=== PATIENT | male | born 1955 | race Caucasian/White ===

== ENCOUNTER 2022-12-08 09:13 | Inpatient (IN) | payer MEDICARE ==
[2022-12-08] MEDS ORDERED: Iopamidol 370 76% 100 ML VIAL ONE (09:25)
[2022-12-08 09:57] LABS: Mean Corpuscular HGB CONC 31.1 g/dL (32.0-36.0); Mean Corpuscular Hemoglobin 27.8 pg (27.0-33.0); Mean Corpuscular Volume 89.2 fl (81.2-95.1); Mean Platelet Volume 9.3 fl (7.4-10.4); Platelet Count 385 10x3/uL (150-450); RBC Distribution Width 16.4 % (11.5-14.5); Red Blood Cell (RBC) Count 3.24 10x6/uL (4.32-5.72); White Blood Cell (WBC) Count 33.1 10x3/uL (3.5-10.5)
[2022-12-08 09:58] LABS: MDiff Complete? YES
[2022-12-08 10:02] LABS: Actual Bicarbonate (HCO3v) 22.1 mEq/L (22-28); Calcium, Ionized (venous) 1.01 mmol/L (1.16-1.32); Chloride (VBG) 97 mmol/L (98-106); Hematocrit-VBG 28 % (42.0-52.0); Hemoglobin (Hb) 9.6 g/dL (12.6-17.4); Potassium (VBG) 3.17 mmol/L (3.70-5.30); Puncture Site Other Site; RapidComm Collect By CBN; Sodium 134.7 mmol/L (133-146); pH (venous) 7.421 (7.32-7.43)
[2022-12-08 10:09] LABS: ALT (SGPT) 12 U/L (8-55); AST (SGOT) 12 U/L (5-34); Albumin 3.2 g/dL (3.4-4.8); Alkaline Phosphatase 97 U/L (40-110); Anion Gap 18 mmol/L (10-20); BUN (Urea Nitrogen) 60 mg/dL (8.4-25.7); Bilirubin, Total 0.6 mg/dL (0.2-1.2); Calc. Creatinine Clearance 0 mL/min (70-130); Calcium 7.6 mg/dL (7.8-10.44); Carbon Dioxide 23 mmol/L (23-31); Chloride 96 mmol/L (98-107); Estimated GFR 8; Globulin 2.9 g/dL (2.4-3.5); Glucose 134 mg/dL (80-115); Potassium 3.3 mmol/L (3.5-5.1); Protein, Total 6.1 g/dL (5.8-8.1); Sodium 134 mmol/L (136-145)
[2022-12-08 10:19] LABS: Band 2 % (5-11); Lymphocytes 5 % (21-51); Monocytes 2 % (0-10); Neutrophil 91 % (42-75)
[2022-12-08 10:20] LABS: Hypochromia SLIGHT = 6-15 cells (100X) (0-5/hpf); Ovalocytes SLIGHT = 2-5 cells (100X) (0-1/hpf); Platelet Adequacy Comment Appears Adequate
[2022-12-08 10:28] LABS: CKMB 1.2 ng/mL (0-6.6)
[2022-12-08 10:30] LABS: SARS-CoV-2 NAA Rapid Test Not Detected (NotDetected)
[2022-12-08] MEDS ORDERED: cefTRIAXone (ROCEPHIN) 1 GM VIAL ONE (11:17)
[2022-12-08] MEDS ORDERED: Glucagon 1 MG/ML KIT IM PRN (13:54)
[2022-12-08] MEDS ORDERED: Dextrose 50% Abboject 50 ML SYRINGE SLOW IVP PRN (13:54)
[2022-12-08] MEDS ORDERED: Dextrose 5% in Water 1,000 ML IV PRN (13:54)
[2022-12-08 18:03] VITALS: BMI 22.6
[2022-12-08] MEDS: Heparin 5,000 UNITS/ML VIAL SC SCH ×2 (18:50→20:43)
[2022-12-08] MEDS ORDERED: LevoFLOXacin 750 mg/D5W 750 MG in Premix Bag 1 BAG IVPB SCH ×2 (19:30→19:45)
[2022-12-09 05:42] LABS: Hemoglobin 8.8 g/dL (13.5-17.5); Mean Corpuscular HGB CONC 31.8 g/dL (32.0-36.0); Mean Corpuscular Hemoglobin 27.8 pg (27.0-33.0); Mean Corpuscular Volume 87.4 fl (81.2-95.1); Platelet Count 371 10x3/uL (150-450); RBC Distribution Width 16.4 % (11.5-14.5); Red Blood Cell (RBC) Count 3.17 10x6/uL (4.32-5.72); White Blood Cell (WBC) Count 28.9 10x3/uL (3.5-10.5)
[2022-12-09 05:43] LABS: MDiff Complete? YES
[2022-12-09 06:00] LABS: Anion Gap 21 mmol/L (10-20); BUN (Urea Nitrogen) 74 mg/dL (8.4-25.7); Calc. Creatinine Clearance 8 mL/min (70-130); Calcium 7.8 mg/dL (7.8-10.44); Carbon Dioxide 22 mmol/L (23-31); Chloride 95 mmol/L (98-107); Estimated GFR 6; Glucose 85 mg/dL (80-115); Potassium 3.2 mmol/L (3.5-5.1); Sodium 135 mmol/L (136-145)
[2022-12-09 06:12] LABS: Band 2 % (5-11); Lymphocytes 4 % (21-51); Monocytes 3 % (0-10); Neutrophil 91 % (42-75)
[2022-12-09 06:13] LABS: Anisocytosis SLIGHT = 6-15 cells (100X) (0-5/hpf); Platelet Adequacy Comment Appears Adequate
[2022-12-09] MEDS: Heparin 10,000 UNITS/ 10 ML VIAL SLOW IVP PRN (11:22)
[2022-12-09] MEDS: Heparin 5,000 UNITS/ML VIAL SC SCH ×3 (11:24→22:08)
[2022-12-09 11:51] LABS: HBSAg Index 0.67 S/CO (0-0.99); Hep B Surf Ag Non-Reactive S/CO (NonReactive)
[2022-12-09] MEDS: EPOETIN ALFA-EPBX (ESRD) 10,000 UNITS/ML VIAL IVP PRN (13:35)
[2022-12-09 15:30] LABS: Cardiac Risk 3.4 (Less than 4.5)
[2022-12-09] MEDS ORDERED: Heparin 10,000 UNITS/ 10 ML VIAL ONE (17:02)
[2022-12-09 17:10] LABS: HBSAB Concentration 39.57 mIU/mL; Hep B Surf AB Reactive (NonReactive)
[2022-12-09] MEDS: hydrALAZINE 25 MG TAB PO SCH ×2 (17:13→22:07)
[2022-12-09 20:18] LABS: Hemoglobin A1c 5.7 % (4.0-6.0)
[2022-12-09] MEDS: Gabapentin 300 MG CAP PO SCH (22:08)
[2022-12-09] MEDS: Atorvastatin Calcium 40 MG TAB PO SCH (22:08)
[2022-12-09] MEDS: Carvedilol 3.125 MG TAB PO SCH (22:09)
[2022-12-10] MEDS: Levothyroxine Sodium 50 MCG TAB PO SCH (06:27)
[2022-12-10 08:36] LABS: Hemoglobin 9.5 g/dL (13.5-17.5); Mean Corpuscular HGB CONC 31.7 g/dL (32.0-36.0); Mean Corpuscular Hemoglobin 28.1 pg (27.0-33.0); Mean Corpuscular Volume 88.8 fl (81.2-95.1); Mean Platelet Volume 9.4 fl (7.4-10.4); Platelet Count 411 10x3/uL (150-450); RBC Distribution Width 16.5 % (11.5-14.5); Red Blood Cell (RBC) Count 3.38 10x6/uL (4.32-5.72); White Blood Cell (WBC) Count 23.9 10x3/uL (3.5-10.5)
[2022-12-10 08:47] LABS: Anion Gap 14 mmol/L (10-20); BUN (Urea Nitrogen) 35 mg/dL (8.4-25.7); Calc. Creatinine Clearance 13 mL/min (70-130); Calcium 8.3 mg/dL (7.8-10.44); Carbon Dioxide 29 mmol/L (23-31); Chloride 99 mmol/L (98-107); Estimated GFR 12; Glucose 140 mg/dL (80-115); Potassium 3.5 mmol/L (3.5-5.1); Sodium 138 mmol/L (136-145)
[2022-12-10 08:56] LABS: MDiff Complete? YES
[2022-12-10] MEDS: hydrALAZINE 25 MG TAB PO SCH ×3 (09:21→20:44)
[2022-12-10] MEDS: Lisinopril 10 MG TAB PO SCH (09:21)
[2022-12-10] MEDS: Escitalopram Oxalate 10 mg Tablet PO SCH (09:22)
[2022-12-10] MEDS: Carvedilol 3.125 MG TAB PO SCH ×2 (09:22→20:44)
[2022-12-10] MEDS: Heparin 5,000 UNITS/ML VIAL SC SCH ×3 (09:22→20:47)
[2022-12-10] MEDS: Aspirin 325 MG TAB PO SCH (09:22)
[2022-12-10] MEDS: Clopidogrel Bisulfate 75 MG TAB PO SCH (09:22)
[2022-12-10 10:08] LABS: Band 1 % (5-11); Eosinophils 1 % (0-10); Lymphocytes 7 % (21-51); Monocytes 4 % (0-10); Neutrophil 87 % (42-75)
[2022-12-10 10:09] LABS: Platelet Adequacy Comment Appears Adequate; RBC Morph Comment Within Normal Limits
[2022-12-10] MEDS ORDERED: Glucagon 1 MG/ML KIT IM PRN (13:19)
[2022-12-10] MEDS ORDERED: HumaLOG 300 UNITS/3 ML VIAL SC PRN (13:19)
[2022-12-10] MEDS ORDERED: Dextrose 50% Abboject 50 ML SYRINGE SLOW IVP PRN (13:19)
[2022-12-10] MEDS ORDERED: Dextrose 5% in Water 1,000 ML IV PRN (13:19)
[2022-12-10] MEDS: HumaLOG 300 UNITS/3 ML VIAL SC PRN (17:39)
[2022-12-10] MEDS: LevoFLOXacin 500 mg/D5W 500 MG in Premix Bag 1 BAG IVPB SCH (20:43)
[2022-12-10] MEDS: Atorvastatin Calcium 40 MG TAB PO SCH (20:44)
[2022-12-10] MEDS: Gabapentin 300 MG CAP PO SCH (20:47)
[2022-12-11 04:08] LABS: #Basophils 0.1 10x3/uL (0.0-0.2); #Eosinphils 0.1 10x3/uL (0.0-0.5); #Monocytes 0.9 10x3/uL (0.0-1.1); #Neutrophils 16.8 10x3/uL (1.5-8.4); %Basophils 0.3 % (0.0-2.0); %Eosinophils 0.7 % (0.0-6.0); %Lymphocytes 4.8 % (18.0-47.0); %Neutrophils 88.6 % (40.0-75.0); Mean Corpuscular HGB CONC 31.1 g/dL (32.0-36.0); Mean Corpuscular Hemoglobin 27.7 pg (27.0-33.0); Mean Corpuscular Volume 88.9 fl (81.2-95.1); Mean Platelet Volume 9.5 fl (7.4-10.4); Platelet Count 414 10x3/uL (150-450); RBC Distribution Width 16.4 % (11.5-14.5); Red Blood Cell (RBC) Count 3.25 10x6/uL (4.32-5.72); White Blood Cell (WBC) Count 18.9 10x3/uL (3.5-10.5)
[2022-12-11 04:20] LABS: Anion Gap 15 mmol/L (10-20); BUN (Urea Nitrogen) 51 mg/dL (8.4-25.7); Calc. Creatinine Clearance 10 mL/min (70-130); Carbon Dioxide 26 mmol/L (23-31); Chloride 100 mmol/L (98-107); Estimated GFR 8; Glucose 110 mg/dL (80-115); Potassium 3.9 mmol/L (3.5-5.1); Sodium 137 mmol/L (136-145)
[2022-12-11] MEDS: Levothyroxine Sodium 50 MCG TAB PO SCH (05:41)
[2022-12-11] MEDS: Clopidogrel Bisulfate 75 MG TAB PO SCH (09:18)
[2022-12-11] MEDS: Aspirin 325 MG TAB PO SCH (09:18)
[2022-12-11] MEDS: Carvedilol 3.125 MG TAB PO SCH ×2 (09:18→21:03)
[2022-12-11] MEDS: Heparin 5,000 UNITS/ML VIAL SC SCH ×3 (09:18→21:03)
[2022-12-11] MEDS: Escitalopram Oxalate 10 mg Tablet PO SCH (09:18)
[2022-12-11] MEDS: Lisinopril 10 MG TAB PO SCH (09:19)
[2022-12-11] MEDS: hydrALAZINE 25 MG TAB PO SCH ×3 (09:19→21:02)
[2022-12-11] MEDS: Heparin 10,000 UNITS/ 10 ML VIAL SLOW IVP PRN (09:57)
[2022-12-11] MEDS: EPOETIN ALFA-EPBX (ESRD) 10,000 UNITS/ML VIAL IVP PRN (12:56)
[2022-12-11] MEDS: Atorvastatin Calcium 40 MG TAB PO SCH (21:03)
[2022-12-11] MEDS: Gabapentin 300 MG CAP PO SCH (21:03)
[2022-12-12 03:57] LABS: #Basophils 0.1 10x3/uL (0.0-0.2); #Eosinphils 0.1 10x3/uL (0.0-0.5); #Monocytes 0.8 10x3/uL (0.0-1.1); #Neutrophils 15.5 10x3/uL (1.5-8.4); %Basophils 0.3 % (0.0-2.0); %Eosinophils 0.3 % (0.0-6.0); %Lymphocytes 4.5 % (18.0-47.0); %Monocytes 4.8 % (0.0-10.0); %Neutrophils 89.4 % (40.0-75.0); Hemoglobin 9.6 g/dL (13.5-17.5); Mean Corpuscular HGB CONC 30.1 g/dL (32.0-36.0); Mean Corpuscular Hemoglobin 27.4 pg (27.0-33.0); Mean Corpuscular Volume 90.9 fl (81.2-95.1); Mean Platelet Volume 9.2 fl (7.4-10.4); Platelet Count 437 10x3/uL (150-450); RBC Distribution Width 16.6 % (11.5-14.5); Red Blood Cell (RBC) Count 3.51 10x6/uL (4.32-5.72); White Blood Cell (WBC) Count 17.3 10x3/uL (3.5-10.5)
[2022-12-12 04:09] LABS: Anion Gap 11 mmol/L (10-20); BUN (Urea Nitrogen) 29 mg/dL (8.4-25.7); Calc. Creatinine Clearance 17 mL/min (70-130); Calcium 8.4 mg/dL (7.8-10.44); Carbon Dioxide 31 mmol/L (23-31); Chloride 100 mmol/L (98-107); Estimated GFR 16; Glucose 163 mg/dL (80-115); Potassium 4.3 mmol/L (3.5-5.1); Sodium 138 mmol/L (136-145)
[2022-12-12] MEDS: Levothyroxine Sodium 50 MCG TAB PO SCH (06:19)
[2022-12-12] MEDS: Heparin 5,000 UNITS/ML VIAL SC SCH ×3 (10:11→21:48)
[2022-12-12] MEDS: Aspirin 325 MG TAB PO SCH (10:12)
[2022-12-12] MEDS: Clopidogrel Bisulfate 75 MG TAB PO SCH (10:12)
[2022-12-12] MEDS: Escitalopram Oxalate 10 mg Tablet PO SCH (10:14)
[2022-12-12] MEDS: hydrALAZINE 25 MG TAB PO SCH ×3 (10:43→21:40)
[2022-12-12] MEDS: Lisinopril 10 MG TAB PO SCH (10:43)
[2022-12-12] MEDS: Carvedilol 3.125 MG TAB PO SCH ×2 (10:43→21:40)
[2022-12-12] MEDS: HumaLOG 300 UNITS/3 ML VIAL SC PRN (12:48)
[2022-12-12] MEDS: Atorvastatin Calcium 40 MG TAB PO SCH (21:39)
[2022-12-12] MEDS: Gabapentin 300 MG CAP PO SCH (21:40)
[2022-12-12] MEDS: LevoFLOXacin 500 mg/D5W 500 MG in Premix Bag 1 BAG IVPB SCH (21:41)
[2022-12-13] MEDS: Levothyroxine Sodium 50 MCG TAB PO SCH (05:28)
[2022-12-13 05:45] LABS: #Basophils 0.1 10x3/uL (0.0-0.2); #Eosinphils 0.2 10x3/uL (0.0-0.5); #Monocytes 0.9 10x3/uL (0.0-1.1); %Basophils 0.4 % (0.0-2.0); %Eosinophils 1.1 % (0.0-6.0); %Lymphocytes 5.3 % (18.0-47.0); %Neutrophils 87.5 % (40.0-75.0); Hemoglobin 9.9 g/dL (13.5-17.5); Mean Corpuscular HGB CONC 30.9 g/dL (32.0-36.0); Mean Corpuscular Volume 90.4 fl (81.2-95.1); Mean Platelet Volume 9.2 fl (7.4-10.4); Platelet Count 459 10x3/uL (150-450); RBC Distribution Width 16.8 % (11.5-14.5); Red Blood Cell (RBC) Count 3.54 10x6/uL (4.32-5.72); White Blood Cell (WBC) Count 18.3 10x3/uL (3.5-10.5)
[2022-12-13 06:02] LABS: Anion Gap 19 mmol/L (10-20); BUN (Urea Nitrogen) 52 mg/dL (8.4-25.7); Calc. Creatinine Clearance 12 mL/min (70-130); Calcium 8.4 mg/dL (7.8-10.44); Carbon Dioxide 26 mmol/L (23-31); Chloride 98 mmol/L (98-107); Estimated GFR 10; Glucose 116 mg/dL (80-115); Sodium 138 mmol/L (136-145)
[2022-12-13] MEDS: Clopidogrel Bisulfate 75 MG TAB PO SCH (09:17)
[2022-12-13] MEDS: Lisinopril 10 MG TAB PO SCH (09:17)
[2022-12-13] MEDS: Carvedilol 3.125 MG TAB PO SCH ×2 (09:17→20:56)
[2022-12-13] MEDS: Aspirin 325 MG TAB PO SCH (09:17)
[2022-12-13] MEDS: Heparin 5,000 UNITS/ML VIAL SC SCH ×3 (09:17→20:56)
[2022-12-13] MEDS: Escitalopram Oxalate 10 mg Tablet PO SCH (09:17)
[2022-12-13] MEDS: hydrALAZINE 25 MG TAB PO SCH ×3 (09:17→21:35)
[2022-12-13] MEDS: Gabapentin 300 MG CAP PO SCH (20:55)
[2022-12-13] MEDS: Atorvastatin Calcium 40 MG TAB PO SCH (20:56)
[2022-12-14] MEDS: Levothyroxine Sodium 50 MCG TAB PO SCH (05:58)
[2022-12-14] MEDS: Lisinopril 10 MG TAB PO SCH (08:58)
[2022-12-14] MEDS: Heparin 5,000 UNITS/ML VIAL SC SCH ×3 (08:58→22:47)
[2022-12-14] MEDS: Carvedilol 3.125 MG TAB PO SCH ×2 (08:58→22:44)
[2022-12-14] MEDS: Clopidogrel Bisulfate 75 MG TAB PO SCH (08:58)
[2022-12-14] MEDS: hydrALAZINE 25 MG TAB PO SCH ×4 (08:58→22:46)
[2022-12-14] MEDS: Aspirin 325 MG TAB PO SCH (08:58)
[2022-12-14] MEDS: Escitalopram Oxalate 10 mg Tablet PO SCH (08:58)
[2022-12-14] MEDS: Atorvastatin Calcium 40 MG TAB PO SCH (22:44)
[2022-12-14] MEDS: Gabapentin 300 MG CAP PO SCH (22:45)
[2022-12-14] MEDS: LevoFLOXacin 500 mg/D5W 500 MG in Premix Bag 1 BAG IVPB SCH (22:46)
[2022-12-15 04:31] LABS: Anion Gap 20 mmol/L (10-20); BUN (Urea Nitrogen) 57 mg/dL (8.4-25.7); Calc. Creatinine Clearance 12 mL/min (70-130); Calcium 8.1 mg/dL (7.8-10.44); Carbon Dioxide 25 mmol/L (23-31); Chloride 98 mmol/L (98-107); Estimated GFR 10; Glucose 127 mg/dL (80-115); Potassium 4.8 mmol/L (3.5-5.1); Sodium 138 mmol/L (136-145)
[2022-12-15 04:42] LABS: #Basophils 0.1 10x3/uL (0.0-0.2); #Eosinphils 0.3 10x3/uL (0.0-0.5); #Monocytes 0.8 10x3/uL (0.0-1.1); #Neutrophils 10.6 10x3/uL (1.5-8.4); %Basophils 0.8 % (0.0-2.0); %Lymphocytes 8.7 % (18.0-47.0); %Monocytes 6.2 % (0.0-10.0); %Neutrophils 81.3 % (40.0-75.0); Hemoglobin 9.5 g/dL (13.5-17.5); Mean Corpuscular HGB CONC 30.4 g/dL (32.0-36.0); Mean Corpuscular Hemoglobin 27.7 pg (27.0-33.0); Mean Corpuscular Volume 91.3 fl (81.2-95.1); Mean Platelet Volume 9.3 fl (7.4-10.4); Platelet Count 435 10x3/uL (150-450); RBC Distribution Width 17.2 % (11.5-14.5); Red Blood Cell (RBC) Count 3.43 10x6/uL (4.32-5.72)
[2022-12-15] MEDS: Levothyroxine Sodium 50 MCG TAB PO SCH (05:59)
[2022-12-15] MEDS: Heparin 5,000 UNITS/ML VIAL SC SCH ×3 (09:10→22:09)
[2022-12-15] MEDS: Lisinopril 10 MG TAB PO SCH (09:11)
[2022-12-15] MEDS: Aspirin 325 MG TAB PO SCH (09:11)
[2022-12-15] MEDS: Escitalopram Oxalate 10 mg Tablet PO SCH (09:11)
[2022-12-15] MEDS: Carvedilol 3.125 MG TAB PO SCH ×2 (09:11→22:09)
[2022-12-15] MEDS: Clopidogrel Bisulfate 75 MG TAB PO SCH (09:11)
[2022-12-15] MEDS: hydrALAZINE 25 MG TAB PO SCH ×2 (09:11→14:40)
[2022-12-15] MEDS: Gabapentin 100 MG CAP PO SCH (22:08)
[2022-12-15] MEDS: Atorvastatin Calcium 40 MG TAB PO SCH (22:08)
[2022-12-16] MEDS: hydrALAZINE 25 MG TAB PO SCH ×4 (05:53→21:26)
[2022-12-16] MEDS: Levothyroxine Sodium 50 MCG TAB PO SCH (05:54)
[2022-12-16] MEDS: Aspirin 325 MG TAB PO SCH (08:03)
[2022-12-16] MEDS: Carvedilol 3.125 MG TAB PO SCH ×2 (08:03→21:26)
[2022-12-16] MEDS: Clopidogrel Bisulfate 75 MG TAB PO SCH (08:03)
[2022-12-16] MEDS: Escitalopram Oxalate 10 mg Tablet PO SCH (08:03)
[2022-12-16] MEDS: Lisinopril 10 MG TAB PO SCH (08:04)
[2022-12-16] MEDS: Heparin 5,000 UNITS/ML VIAL SC SCH ×3 (08:04→21:26)
[2022-12-16] MEDS: LevoFLOXacin 500 mg/D5W 500 MG in Premix Bag 1 BAG IVPB SCH (21:25)
[2022-12-16] MEDS: Atorvastatin Calcium 40 MG TAB PO SCH (21:26)
[2022-12-16] MEDS: Gabapentin 100 MG CAP PO SCH (21:26)
[2022-12-17] MEDS: Levothyroxine Sodium 50 MCG TAB PO SCH (06:34)
[2022-12-17 07:16] LABS: #Basophils 0.1 10x3/uL (0.0-0.2); #Eosinphils 0.3 10x3/uL (0.0-0.5); #Monocytes 0.8 10x3/uL (0.0-1.1); #Neutrophils 9.1 10x3/uL (1.5-8.4); %Basophils 0.4 % (0.0-2.0); %Eosinophils 2.4 % (0.0-6.0); %Lymphocytes 7.8 % (18.0-47.0); %Neutrophils 80.7 % (40.0-75.0); Hemoglobin 9.7 g/dL (13.5-17.5); Mean Corpuscular HGB CONC 30.8 g/dL (32.0-36.0); Mean Corpuscular Hemoglobin 27.8 pg (27.0-33.0); Mean Corpuscular Volume 90.3 fl (81.2-95.1); Mean Platelet Volume 9.1 fl (7.4-10.4); Platelet Count 391 10x3/uL (150-450); RBC Distribution Width 17.2 % (11.5-14.5); Red Blood Cell (RBC) Count 3.49 10x6/uL (4.32-5.72); White Blood Cell (WBC) Count 11.2 10x3/uL (3.5-10.5)
[2022-12-17 07:30] LABS: Anion Gap 19 mmol/L (10-20); BUN (Urea Nitrogen) 46 mg/dL (8.4-25.7); Calc. Creatinine Clearance 15 mL/min (70-130); Calcium 8.1 mg/dL (7.8-10.44); Carbon Dioxide 23 mmol/L (23-31); Chloride 96 mmol/L (98-107); Estimated GFR 14; Glucose 101 mg/dL (80-115); Potassium 4.8 mmol/L (3.5-5.1); Sodium 133 mmol/L (136-145)
[2022-12-17] MEDS: hydrALAZINE 25 MG TAB PO SCH ×3 (08:39→20:52)
[2022-12-17] MEDS: Aspirin 325 MG TAB PO SCH (08:39)
[2022-12-17] MEDS: Escitalopram Oxalate 10 mg Tablet PO SCH (08:40)
[2022-12-17] MEDS: Heparin 5,000 UNITS/ML VIAL SC SCH ×3 (08:40→20:52)
[2022-12-17] MEDS: Carvedilol 3.125 MG TAB PO SCH ×2 (08:40→20:53)
[2022-12-17] MEDS: Clopidogrel Bisulfate 75 MG TAB PO SCH (08:40)
[2022-12-17] MEDS ORDERED: Epoetin (ESRD) 10,000 UNITS/ML VIAL IVP PRN (13:30)
[2022-12-17] MEDS: Atorvastatin Calcium 40 MG TAB PO SCH (20:52)
[2022-12-17] MEDS: Gabapentin 100 MG CAP PO SCH (20:53)
[2022-12-18] MEDS: Levothyroxine Sodium 50 MCG TAB PO SCH (05:54)
[2022-12-18] MEDS ORDERED: EPOETIN ALFA-EPBX (ESRD) 4,000 UNITS/ML VIAL IVP PRN (08:00)
[2022-12-18] MEDS: Heparin 5,000 UNITS/ML VIAL SC SCH ×3 (08:13→21:08)
[2022-12-18] MEDS: Aspirin 325 MG TAB PO SCH (08:13)
[2022-12-18] MEDS: Carvedilol 3.125 MG TAB PO SCH ×2 (08:13→21:09)
[2022-12-18] MEDS: Clopidogrel Bisulfate 75 MG TAB PO SCH (08:13)
[2022-12-18] MEDS: Escitalopram Oxalate 10 mg Tablet PO SCH (08:13)
[2022-12-18] MEDS: hydrALAZINE 25 MG TAB PO SCH ×3 (08:14→21:09)
[2022-12-18] MEDS: Gabapentin 100 MG CAP PO SCH (21:08)
[2022-12-18] MEDS: LevoFLOXacin 500 mg/D5W 500 MG in Premix Bag 1 BAG IVPB SCH (21:08)
[2022-12-18] MEDS: Atorvastatin Calcium 40 MG TAB PO SCH (21:09)
[2022-12-19 05:09] LABS: #Basophils 0.1 10x3/uL (0.0-0.2); #Eosinphils 0.2 10x3/uL (0.0-0.5); #Monocytes 0.7 10x3/uL (0.0-1.1); #Neutrophils 6.9 10x3/uL (1.5-8.4); %Basophils 0.8 % (0.0-2.0); %Eosinophils 1.9 % (0.0-6.0); %Lymphocytes 8.6 % (18.0-47.0); %Monocytes 8.4 % (0.0-10.0); %Neutrophils 79.3 % (40.0-75.0); Mean Corpuscular HGB CONC 30.7 g/dL (32.0-36.0); Mean Corpuscular Hemoglobin 27.9 pg (27.0-33.0); Mean Corpuscular Volume 90.8 fl (81.2-95.1); Mean Platelet Volume 8.8 fl (7.4-10.4); Platelet Count 345 10x3/uL (150-450); RBC Distribution Width 17.5 % (11.5-14.5); Red Blood Cell (RBC) Count 3.59 10x6/uL (4.32-5.72); White Blood Cell (WBC) Count 8.6 10x3/uL (3.5-10.5)
[2022-12-19 05:21] LABS: Anion Gap 15 mmol/L (10-20); BUN (Urea Nitrogen) 27 mg/dL (8.4-25.7); Calc. Creatinine Clearance 19 mL/min (70-130); Carbon Dioxide 29 mmol/L (23-31); Chloride 99 mmol/L (98-107); Estimated GFR 18; Glucose 104 mg/dL (80-115); Sodium 139 mmol/L (136-145)
[2022-12-19] MEDS: Levothyroxine Sodium 50 MCG TAB PO SCH (06:11)
[2022-12-19] MEDS: Aspirin 325 MG TAB PO SCH (11:57)
[2022-12-19] MEDS: Clopidogrel Bisulfate 75 MG TAB PO SCH (11:57)
[2022-12-19] MEDS: Heparin 5,000 UNITS/ML VIAL SC SCH ×3 (11:58→21:12)
[2022-12-19] MEDS: Carvedilol 3.125 MG TAB PO SCH ×2 (11:58→21:11)
[2022-12-19] MEDS: hydrALAZINE 25 MG TAB PO SCH ×3 (11:58→21:12)
[2022-12-19] MEDS: Escitalopram Oxalate 10 mg Tablet PO SCH (11:58)
[2022-12-19] MEDS: Atorvastatin Calcium 40 MG TAB PO SCH (21:11)
[2022-12-19] MEDS: Gabapentin 100 MG CAP PO SCH (21:12)
[2022-12-20] MEDS: Levothyroxine Sodium 50 MCG TAB PO SCH (05:22)
[2022-12-20] MEDS: Escitalopram Oxalate 10 mg Tablet PO SCH (09:41)
[2022-12-20] MEDS: Heparin 5,000 UNITS/ML VIAL SC SCH ×3 (09:41→20:19)
[2022-12-20] MEDS: Aspirin 81 mg Enteric Coated Tablet PO SCH (09:41)
[2022-12-20] MEDS: Carvedilol 6.25 MG TAB PO SCH ×2 (09:41→17:06)
[2022-12-20] MEDS: hydrALAZINE 25 MG TAB PO SCH ×3 (09:41→20:19)
[2022-12-20] MEDS: Clopidogrel Bisulfate 75 MG TAB PO SCH (09:41)
[2022-12-20] MEDS ORDERED: Epoetin (ESRD) 10,000 UNITS/ML VIAL IVP PRN (12:15)
[2022-12-20] MEDS: LevoFLOXacin 500 mg/D5W 500 MG in Premix Bag 1 BAG IVPB SCH (20:18)
[2022-12-20] MEDS: Gabapentin 100 MG CAP PO SCH (20:20)
[2022-12-20] MEDS: Atorvastatin Calcium 40 MG TAB PO SCH (20:21)
[2022-12-21 04:55] LABS: #Basophils 0.1 10x3/uL (0.0-0.2); #Eosinphils 0.1 10x3/uL (0.0-0.5); #Monocytes 0.7 10x3/uL (0.0-1.1); #Neutrophils 7.3 10x3/uL (1.5-8.4); %Basophils 0.9 % (0.0-2.0); %Eosinophils 1.6 % (0.0-6.0); %Lymphocytes 8.3 % (18.0-47.0); %Monocytes 7.3 % (0.0-10.0); %Neutrophils 81.3 % (40.0-75.0); Hemoglobin 9.8 g/dL (13.5-17.5); Mean Corpuscular HGB CONC 30.1 g/dL (32.0-36.0); Mean Corpuscular Hemoglobin 27.8 pg (27.0-33.0); Mean Corpuscular Volume 92.6 fl (81.2-95.1); Mean Platelet Volume 8.7 fl (7.4-10.4); Platelet Count 340 10x3/uL (150-450); RBC Distribution Width 18.3 % (11.5-14.5); Red Blood Cell (RBC) Count 3.52 10x6/uL (4.32-5.72); White Blood Cell (WBC) Count 8.9 10x3/uL (3.5-10.5)
[2022-12-21 05:06] LABS: Anion Gap 13 mmol/L (10-20); BUN (Urea Nitrogen) 20 mg/dL (8.4-25.7); Calc. Creatinine Clearance 20 mL/min (70-130); Carbon Dioxide 30 mmol/L (23-31); Chloride 102 mmol/L (98-107); Estimated GFR 19; Glucose 111 mg/dL (80-115); Potassium 4.7 mmol/L (3.5-5.1); Sodium 140 mmol/L (136-145)
[2022-12-21] MEDS: Levothyroxine Sodium 50 MCG TAB PO SCH (05:56)
[2022-12-21] MEDS: Heparin 5,000 UNITS/ML VIAL SC SCH ×3 (09:30→20:59)
[2022-12-21] MEDS: Escitalopram Oxalate 10 mg Tablet PO SCH (09:30)
[2022-12-21] MEDS: hydrALAZINE 25 MG TAB PO SCH ×3 (09:31→21:00)
[2022-12-21] MEDS: Carvedilol 6.25 MG TAB PO SCH ×2 (09:31→16:46)
[2022-12-21] MEDS: Clopidogrel Bisulfate 75 MG TAB PO SCH (09:31)
[2022-12-21] MEDS: Aspirin 81 mg Enteric Coated Tablet PO SCH (09:31)
[2022-12-21] MEDS: Gabapentin 100 MG CAP PO SCH (21:00)
[2022-12-21] MEDS: Atorvastatin Calcium 40 MG TAB PO SCH (21:00)
[2022-12-22] MEDS: Levothyroxine Sodium 50 MCG TAB PO SCH (06:54)
[2022-12-22] MEDS: LevoFLOXacin 250 MG TAB PO SCH (06:54)
[2022-12-22] MEDS: Heparin 5,000 UNITS/ML VIAL SC SCH ×3 (08:51→22:07)
[2022-12-22] MEDS: hydrALAZINE 25 MG TAB PO SCH ×3 (08:51→22:06)
[2022-12-22] MEDS: Escitalopram Oxalate 10 mg Tablet PO SCH (08:51)
[2022-12-22] MEDS: Clopidogrel Bisulfate 75 MG TAB PO SCH (08:51)
[2022-12-22] MEDS: Aspirin 81 mg Enteric Coated Tablet PO SCH (08:51)
[2022-12-22] MEDS: Carvedilol 6.25 MG TAB PO SCH ×2 (08:51→16:20)
[2022-12-22] MEDS: Atorvastatin Calcium 40 MG TAB PO SCH (22:04)
[2022-12-22] MEDS: Gabapentin 100 MG CAP PO SCH (22:04)
[2022-12-23 06:03] LABS: #Basophils 0.1 10x3/uL (0.0-0.2); #Eosinphils 0.3 10x3/uL (0.0-0.5); #Monocytes 0.7 10x3/uL (0.0-1.1); #Neutrophils 9.4 10x3/uL (1.5-8.4); %Basophils 0.8 % (0.0-2.0); %Eosinophils 2.2 % (0.0-6.0); %Lymphocytes 8.6 % (18.0-47.0); %Monocytes 6.4 % (0.0-10.0); %Neutrophils 81.6 % (40.0-75.0); Hemoglobin 10.1 g/dL (13.5-17.5); Mean Corpuscular HGB CONC 30.3 g/dL (32.0-36.0); Mean Corpuscular Hemoglobin 28.1 pg (27.0-33.0); Mean Corpuscular Volume 92.5 fl (81.2-95.1); Mean Platelet Volume 9.1 fl (7.4-10.4); Platelet Count 378 10x3/uL (150-450); RBC Distribution Width 18.4 % (11.5-14.5); White Blood Cell (WBC) Count 11.5 10x3/uL (3.5-10.5)
[2022-12-23 06:04] LABS: Phosphorus 2.9 mg/dL (2.3-4.7)
[2022-12-23 06:10] LABS: Anion Gap 18 mmol/L (10-20); BUN (Urea Nitrogen) 61 mg/dL (8.4-25.7); Calc. Creatinine Clearance 10 mL/min (70-130); Calcium 8.1 mg/dL (7.8-10.44); Carbon Dioxide 25 mmol/L (23-31); Chloride 100 mmol/L (98-107); Estimated GFR 9; Glucose 126 mg/dL (80-115); Potassium 5.8 mmol/L (3.5-5.1); Sodium 137 mmol/L (136-145)
[2022-12-23] MEDS: LevoFLOXacin 250 MG TAB PO SCH (06:39)
[2022-12-23] MEDS: Levothyroxine Sodium 50 MCG TAB PO SCH (06:39)
[2022-12-23] MEDS: hydrALAZINE 25 MG TAB PO SCH ×3 (09:16→22:33)
[2022-12-23] MEDS: Escitalopram Oxalate 10 mg Tablet PO SCH (09:17)
[2022-12-23] MEDS: Heparin 5,000 UNITS/ML VIAL SC SCH ×3 (09:17→22:33)
[2022-12-23] MEDS: Aspirin 81 mg Enteric Coated Tablet PO SCH (09:17)
[2022-12-23] MEDS: Clopidogrel Bisulfate 75 MG TAB PO SCH (09:17)
[2022-12-23] MEDS: Carvedilol 6.25 MG TAB PO SCH (09:18)
[2022-12-23] MEDS: Carvedilol 12.5 MG TAB PO SCH (16:06)
[2022-12-23] MEDS: HumaLOG 300 UNITS/3 ML VIAL SC PRN (16:33)
[2022-12-23] MEDS: Atorvastatin Calcium 40 MG TAB PO SCH (22:32)
[2022-12-23] MEDS: Gabapentin 100 MG CAP PO SCH (22:32)
[2022-12-24] MEDS: LevoFLOXacin 250 MG TAB PO SCH (06:20)
[2022-12-24] MEDS: Levothyroxine Sodium 50 MCG TAB PO SCH (06:21)
[2022-12-24 08:16] VITALS: BP 174/81; TEMP 98.5
[2022-12-24] MEDS: Carvedilol 12.5 MG TAB PO SCH (09:23)
[2022-12-24] MEDS: hydrALAZINE 25 MG TAB PO SCH (09:23)
[2022-12-24] MEDS: Clopidogrel Bisulfate 75 MG TAB PO SCH (09:24)
[2022-12-24] MEDS: Escitalopram Oxalate 10 mg Tablet PO SCH (09:24)
[2022-12-24] MEDS: Aspirin 81 mg Enteric Coated Tablet PO SCH (09:24)
[2022-12-24] MEDS: Heparin 5,000 UNITS/ML VIAL SC SCH (09:24)
== END 2022-12-24 09:56 | DRG 64 ==
LOC: CSHERS 09:13 → SUATTDRO 09:13 → CSHTELE 17:05
PROVIDERS: ADMIT Family Medicine; ATTEND Internal Medicine
PROC: 5A1D70Z Performance of Urinary Filtration, Intermittent, Less than 6 Hours Per Day (ICD-10-PCS; principal; 2022-12-23)
DX: I63.9 Cerebral infarction, unspecified (principal); A41.9 Sepsis, unspecified organism; N18.6 End stage renal disease; N41.2 Abscess of prostate; E87.1 Hypo-osmolality and hyponatremia; N25.81 Secondary hyperparathyroidism of renal origin; G81.94 Hemiplegia, unspecified affecting left nondominant side; F03.90 Unspecified dementia, unspecified severity, without behavioral disturbance, psychotic disturbance, mood disturbance, and anxiety; E11.22 Type 2 diabetes mellitus with diabetic chronic kidney disease; Z20.822 Contact with and (suspected) exposure to COVID-19; E03.9 Hypothyroidism, unspecified; E78.5 Hyperlipidemia, unspecified; E87.6 Hypokalemia; D63.1 Anemia in chronic kidney disease; E87.5 Hyperkalemia; Z86.73 Personal history of transient ischemic attack (TIA), and cerebral infarction without residual deficits; Z89.512 Acquired absence of left leg below knee; Z89.511 Acquired absence of right leg below knee; Z99.2 Dependence on renal dialysis; Z98.890 Other specified postprocedural states
CPT/HCPCS: 36415; 36416; 70450; 70551; 71045; 74177; 74230; 80048; 80053; 80061; 82553; 82805; 83036; 83605; 83735; 83880; 84100; 84443; 84484; 85025; 86706; 87070; 87077; 87186; 87340; 90935; 93005; 93306; 93880; 94760; 94762; 96365; G0257; J0696; J1644; J1815; J1956; Q5105; Q9967